=== PATIENT | male | born 1985 | race Caucasian/White ===

== ENCOUNTER 2016-12-06 17:38 | Emergency (ER) | payer MEDICARE, MEDICAID ==
[2016-12-06] MEDS ORDERED: Morphine 2 MG/ML Syringe IVPUSH ONE (17:51)
[2016-12-06] MEDS ORDERED: Sodium Chloride 0.9% 10 ML Syringe FLUSH PRN (17:51)
[2016-12-06] MEDS ORDERED: Acetaminophen/HYDROcodone 325-5 MG Tab ONE (18:00)
[2016-12-06] MEDS ORDERED: Cyclobenzaprine 10 MG Tab ONE (18:00)
--- NOTE | 2016-12-06 18:04 | EDM.PDOC ---
ED HPI GENERAL MEDICAL PROBLEM - General Chief Complaint: General Stated Complaint: BACK PAIN Time Seen by Provider: 12/06/16 17:50 Source of Information: Reports: Patient, Family History Limitations: Reports: No limitations - History of Present Illness INITIAL COMMENTS - FREE TEXT/NARRATIVE: This is a 30yo M with increasing left flank pain over the past 2-3wks. The severity worsened and in the past 24 hours to an 8/10. Patient states he saw a chiropractor and was told it was muscle spasms. Patient states he felt the pain with each movement but during questioning his left flank was hurting despite no movement and was on an off - colicky. Onset: gradual Duration: Week(s): Location: Reports: back Quality: Reports: Ache Severity: severe Improves with: Reports: None Worsens with: Reports: None Associated Symptoms: Reports: denies other symptoms Left Lower Back Pain Score (Numeric/FACES): 0 - Related Data Allergies Allergy/AdvReac Type Severity Reaction Status Date / Time No Known Allergies Allergy Verified 12/06/16 17:41 Home Meds: Home Meds Albuterol [Proair HFA] 2 inh INH Q4HWA 12/06/16 [History] atoMOXetine [Strattera] 60 mg PO DAILY 12/06/16 [History] ED ROS GENERAL - Review of Systems Review Of Systems: ROS reveals no pertinent complaints other than HPI. ED EXAM, GENERAL - Physical Exam Exam: See Below Exam Limited By: No limitations General Appearance: alert, WD/WN, moderate distress, severe distress Ears: normal external exam Nose: normal inspection Throat/Mouth: Normal inspection Head: atraumatic, normocephalic Neck: normal inspection Respiratory/Chest: no respiratory distress, lungs clear, normal breath sounds Cardiovascular: normal peripheral pulses, regular rate, rhythm GI/Abdominal: normal bowel sounds Back Exam: CVA tenderness (L) Extremities: normal inspection Neurological: alert, oriented, CN II-XII intact Course - Vital Signs Last Recorded V/S: Last Vital Signs Temp Pulse 66 12/06/16 18:42 Resp 16 12/06/16 18:42 BP 127/96 H 12/06/16 18:42 Pulse Ox 100 12/06/16 18:42 - Orders/Labs/Meds Orders: Active Orders 24 hr Category Date Time Status Abdomen Pelvis wo Cont [CT] Stat Exams 12/06/16 17:50 Taken Peripheral IV Insertion Adult [OM.PC] Routine Oth 12/06/16 17:51 Ordered Meds: Medications Discontinued Medications Generic Name Dose Route Start Last Admin Trade Name Judith PRN Reason Stop Dose Admin Hydrocodone Bitart/Acetaminophen 10 tab 12/06/16 18:00 [place] 325-5 Mg .ROUTE 12/06/16 18:01 .STK-MED ONE Cyclobenzaprine HCl 150 mg 12/06/16 18:00 Flexeril .ROUTE 12/06/16 18:01 .STK-MED ONE Morphine Sulfate 2 mg 12/06/16 17:51 12/06/16 18:00 Morphine IVPUSH 12/06/16 17:52 2 mg ONETIME ONE Administration Morphine Sulfate 5 mg 12/06/16 18:13 12/06/16 18:35 Morphine IVPUSH 12/06/16 18:14 5 mg ONETIME ONE Administration Morphine Sulfate Confirm 12/06/16 18:17 12/06/16 18:35 Morphine Administered 12/06/16 18:18 Not Given Dose 10 mg .ROUTE .STK-MED ONE Sodium Chloride 10 ml 12/06/16 17:51 12/06/16 18:38 Saline Flush FLUSH 10 ml ASDIRECTED PRN Administration Keep Vein Open Departure - Departure Time of Disposition: 19:45 Disposition: Home, Self-Care 01 Condition: good Clinical Impression: Low back strain Qualifiers: Encounter type: initial encounter Qualified Code(s): S39.012A - Strain of muscle, fascia and tendon of lower back, initial encounter Instructions: Acetaminophen; Hydrocodone tablets or capsules, Cyclobenzaprine tablets, Muscle Strain, [id number] Referrals: PCP,None [Primary Care Provider] - Forms: ED Department Discharge Care Plan Goals: Take aleve 2 tablets OTC twice a day. Take flexeril 3 x day, vicoden 1 or two tablets every 4 to 6 hours as needed for pain. Return to clinic if needed. Off work x 1 week. Cold pack to area no more than 20 minutes at a time for pain - Problem List & Annotations (1) Low back strain SNOMED Code(s): 064945510 Code(s): S39.012A - STRAIN OF MUSCLE, FASCIA AND TENDON OF LOWER BACK, INIT Status: Acute Priority: High Qualifiers: Encounter type: initial encounter Qualified Code(s): S39.012A - Strain of muscle, fascia and tendon of lower back, initial encounter - My Orders Last 24 Hours: My Active Orders 12/06/16 17:50 Abdomen Pelvis wo Cont [CT] Stat 12/06/16 17:51 Peripheral IV Insertion Adult [OM.PC] Routine - Assessment/Plan Last 24 Hours: My Active Orders 12/06/16 17:50 Abdomen Pelvis wo Cont [CT] Stat 12/06/16 17:51 Peripheral IV Insertion Adult [OM.PC] Routine Plan: Counseled on f/u if symptoms do not improve and resolve. Discussed close f/u for worsening symptoms for further management. No work for 1-2 wks and f/u as needed for re-evaluation.
[2016-12-06] MEDS ORDERED: Morphine 10 MG/ML Syringe IVPUSH ONE (18:13)
[2016-12-06] MEDS ORDERED: Morphine 10 MG/ML Syringe ONE (18:17)
[2016-12-06 18:45] VITALS: BP 127/96
--- NOTE | 2016-12-07 10:22 | CT ---
DATE OF SERVICE: 12/06/2016 CLINICAL DATA: Severe flank pain. UNENHANCED ABDOMEN AND PELVIC CT Multislice acquisition through the abdomen and pelvis without IV or oral contrast was performed. No priors. The lung bases are clear. The unenhanced liver appears normal. No focal hepatic lesions. There is a 10 mm calcified gallstone within the gallbladder. The gallbladder wall may be slightly thickened. Gallbladder ultrasound is recommended. The spleen appears normal. The pancreas appears normal. The right and left adrenals appear normal. The right and left kidneys appear normal. No nephrocalcinosis or nephrolithiasis. No hydronephrosis or hydroureter. The bladder is fluid filled and appears normal. The stomach is mildly distended. The appendix is not dilated. There are small appendicoliths within it. No definite evidence for appendicitis. No free air. No free fluid. No dilated loops of bowel. There are nonspecific mesenteric nodes medial to the cecum. Mesenteric adenitis should be considered. There is a small umbilical hernia containing fat. The exam is otherwise negative. CONCLUSIONS: 1) Cholelithiasis with questionable gallbladder wall thickening. Gallbladder ultrasound is recommended. 2) Distended stomach. Gastric outlet obstruction should be considered. 3) Other findings as discussed above. [id number] [facility]
== END 2016-12-06 19:15 | disposition home or self-care (01) ==
LOC: LB.ED 17:38
DX: S39.012A Strain of muscle, fascia and tendon of lower back, initial encounter (principal); Z79.899 Other long term (current) drug therapy; X58.XXXA Exposure to other specified factors, initial encounter
CPT/HCPCS: 74176; 96374; 99283; A9270; J2270; J7050

== ENCOUNTER 2019-02-19 19:35 | Emergency (ER) | payer OTHER, MEDICARE, MEDICAID ==
[2019-02-19 19:50] VITALS: BP 131/97
[2019-02-19] MEDS ORDERED: Methocarbamol 500 MG Tab ONE (19:50)
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
== END 2019-02-19 19:54 | disposition home or self-care (01) ==
LOC: LB.ED 19:35
DX: S46.912A Strain of unspecified muscle, fascia and tendon at shoulder and upper arm level, left arm, initial encounter (principal); Z79.899 Other long term (current) drug therapy; V89.2XXA Person injured in unspecified motor-vehicle accident, traffic, initial encounter
CPT/HCPCS: 99283; A9270-GY

== ENCOUNTER 2023-07-28 09:32 | Emergency (ER) | payer OTHER, MEDICARE, MEDICAID ==
[2023-07-28 10:41] VITALS: BP 125/92; PULSE 67
== END 2023-07-28 11:07 | disposition home or self-care (01) ==
LOC: LB.ED 09:32
DX: S60.052A Contusion of left little finger without damage to nail, initial encounter (principal); Z91.048 Other nonmedicinal substance allergy status; W22.8XXA Striking against or struck by other objects, initial encounter
CPT/HCPCS: 73140-F4; 99282; 99283